=== PATIENT | male | born 1995 | race African-American/Black ===

== ENCOUNTER 2019-01-25 13:57 | Emergency (ER) | payer BC ==
[~2019-01-25] VITALS: Ht 193 cm; Wt 97.5 kg
[2019-01-25 14:09] VITALS: Ht 193 cm; Wt 97.5 kg
[2019-01-25 16:15] VITALS: BP 128/77
== END 2019-01-25 16:15 | disposition home or self-care (01) ==
LOC: ED 13:57
DX: M54.2 Cervicalgia (principal); M54.9 Dorsalgia, unspecified; F17.210 Nicotine dependence, cigarettes, uncomplicated; V43.52XA Car driver injured in collision with other type car in traffic accident, initial encounter; Y93.I9 Activity, other involving external motion; Y92.413 State road as the place of occurrence of the external cause; Y99.8 Other external cause status
CPT/HCPCS: 99406